=== PATIENT | female | born 1980 | race Caucasian/White ===

== ENCOUNTER 2019-02-12 05:29 | Emergency (ER) | payer OTHER ==
[~2019-02-12] VITALS: Ht 160 cm; Wt 56.3 kg
[2019-02-12 05:36] VITALS: Ht 160 cm; Wt 56.3 kg
[2019-02-12 06:54] LABS: BASOPHIL % 0.4 % (0-2); PLATELET COUNT 162 x10^3mcL (130-400); RED CELL DISTRIBUTION WIDTH 12.8 % (11.5-14.5)
[2019-02-12 07:16] LABS: CALCIUM 8.1 mg/dL (8.5-10.1); CARBON DIOXIDE 23.2 mmol/L (21-32); CHLORIDE SERUM 108 mmol/L (98-107); CREATININE SERUM 0.7 mg/dL (0.6-1.0); GFR1 > 60 mL/min; GLUCOSE SERUM 80 mg/dL (74-106); POTASSIUM SERUM 3.7 mmol/L (3.5-5.1); SODIUM SERUM 142 mmol/L (136-145)
[2019-02-12 07:20] LABS: ALBUMIN 3.5 g/dL (3.4-5.0); ALKALINE PHOSPHATASE 72 U/L (46-116); ALT/SGPT 16 U/L (14-59); AMYLASE 50 U/L (25-115); AST/SGOT 12 U/L (15-37); BILIRUBIN TOTAL 0.4 mg/dL (0.20-1.00); LIPASE 146 IU/L (73-393); TOTAL PROTEIN, SERUM 6.7 g/dL (6.4-8.2)
[2019-02-12 08:34] VITALS: BP 102/51
== END 2019-02-12 08:34 | disposition home or self-care (01) ==
LOC: ED 05:29
PROVIDERS: Emergency Medicine
DX: R10.13 Epigastric pain (principal); R11.0 Nausea; Z91.013 Allergy to seafood; Z87.442 Personal history of urinary calculi
CPT/HCPCS: J1885; J2405; J7030; Q0092

== ENCOUNTER 2020-05-18 15:04 | Emergency (ER) | payer OTHER, SELFPAY ==
[~2020-05-18] VITALS: Ht 157.5 cm; Wt 59.0 kg
[2020-05-18 15:07] VITALS: BP 144/68; Ht 157.5 cm; Wt 59.0 kg
== END 2020-05-18 16:05 | disposition home or self-care (01) ==
LOC: ED 15:04
DX: R05 Cough (principal); R06.02 Shortness of breath; Z20.828 Contact with and (suspected) exposure to other viral communicable diseases; Z87.442 Personal history of urinary calculi; Z91.013 Allergy to seafood
CPT/HCPCS: U0003